=== PATIENT | male | born 1970 | race Caucasian/White ===

== ENCOUNTER → 2017-07-09 | Outpatient (CLI) | payer BC ==
[~2017-07-09] MED LIST: PREDNISONE 20MG20 MG PO; ZOFRAN ODT8 MG PO; ZYRTEC10 M2 PO
[2017-07-09 16:57] LABS: HEMOGLOBIN 16.9 g/dL (14.1-18.0); LYMPH # 1.8 K/mm3 (0.7-4.5); LYMPH % 22.6 % (10-50)
[2017-07-09 17:44] LABS: BUN 16 mg/dL (7-18); GFR (ESTIMATED) 81 ML/MIN (>60)
== END ==
LOC: LAB 16:27
PROVIDERS: Nurse Practitioner
DX: C81.90 Hodgkin lymphoma, unspecified, unspecified site (principal)

== ENCOUNTER → 2017-07-10 | Outpatient (CLI) | payer BC ==
--- NOTE | 2017-07-11 07:45 | RADIOLOGY REPORT PS360 ---
CT ABD PELVIS W/ CONTRAST CLINICAL INDICATION: Follow-up lymphoma [facility] LYMPHOMA S/P CHEMO ORDERING PHYSICIAN: Mina Farah MD PATIENT AGE: 47 years COMPARISON: 12/25/2016 TECHNIQUE: Axial images obtained with sagittal and coronal reformats. PROCEDURE: Oral Contrast: Redicat IV Contrast: 75 mL [id number] in conjunction with the chest CT. FINDINGS: Slight decreased attenuation along the falciform ligament likely due to fatty infiltration. Liver has an otherwise unremarkable appearance. No radio opaque gallstones. No splenomegaly. There is some lobular contour of the spleen with splenule is as before. The pancreas and adrenal glands are unremarkable. There are a few small lymph nodes in the peripancreatic region and retroperitoneum unchanged. No adenopathy. Scattered small mesenteric nodes are present unchanged. No intra-abdominal or pelvic mass evident. The terminal ileum has an unremarkable appearance. No bowel wall thickening. No evidence of appendicitis or diverticulitis. No focal inflammatory change. There are scattered small nodes in the inguinal regions bilaterally nonspecific. Grade 1 spondylitic spondylolisthesis L3 on L4 as before. IMPRESSION: 1. Overall stable CT appearance of the abdomen. 2. There are scattered small mesenteric and retroperitoneal lymph nodes but no enlarged lymph nodes are evident and there is no significant change from 12/25/2016
--- NOTE | 2017-07-11 07:49 | RADIOLOGY REPORT PS360 ---
CT CHEST W/ CONTRAST INDICATION: Follow-up lymphoma H[facility] LYMPHOMA S/P CHEMO ORDERING PHYSICIAN: Mina Farah MD PATIENT AGE: 47 years COMPARISON: 12/25/2016 TECHNIQUE: Axial images are obtained with contrast. Sagittal and coronal reformatted images are reviewed as well. FINDINGS: There are few small nodes present within the mediastinum in the AP window and right paratracheal region. The largest node is in the right paratracheal region measuring 2.1 x 1.5 cm and is unchanged. No new nodes are apparent. Normal heart size. No mediastinal or hilar mass. No lobar consolidation or collapse. Calcified granuloma is present in the left lower lobe. No suspicious pulmonary nodules. No effusions. No acute bony anomalies. No evidence of aneurysm or central pulmonary embolus. Mild spondylosis thoracic spine. No obvious axillary adenopathy. IMPRESSION: 1. Overall stable CT appearance of the chest. 2. Mild mediastinal adenopathy unchanged
== END ==
LOC: RAD 08:45
DX: C81.90 Hodgkin lymphoma, unspecified, unspecified site (principal)
CPT/HCPCS: Q9967